=== PATIENT | male | born 1980 | race Caucasian/White ===

== ENCOUNTER 2020-01-09 01:58 | Emergency (ER) | payer SELFPAY ==
[~2020-01-09] VITALS: Ht 167.6 cm; Wt 80.0 kg
--- NOTE | 2020-01-09 02:03 | NUR ---
Patient BIB [facility] c/o meth ingestion. Patient states he swallowed half of a bag of meth (EMS states approx 1/2 gram. Per EMS, patient was going to be arrested but instead was sent to the hospital to be evaluated. Patient c/o nausea. Denies pain. Paient is in NAD. Respirations even and unlabored.
[2020-01-09 04:29] VITALS: BP 146/91
--- NOTE | 2020-01-09 04:48 | NUR ---
Discharge instructions given. All questions and concerns addressed. Patient ambulatory with a steady gait. Belongings with patient.
== END 2020-01-09 04:50 | disposition home or self-care (01) ==
LOC: ED 03:34
DX: F15.129 Other stimulant abuse with intoxication, unspecified (principal); Z72.9 Problem related to lifestyle, unspecified; R00.0 Tachycardia, unspecified; R41.82 Altered mental status, unspecified
CPT/HCPCS: 93005; 99283

== ENCOUNTER 2020-01-12 08:35 | Emergency (ER) | payer OTHER, SELFPAY ==
[~2020-01-12] VITALS: Ht 162.6 cm; Wt 76.0 kg
--- NOTE | 2020-01-12 09:55 | NUR ---
SHIPPING SUPPORT CLERK: PT TO ROOM VIA WHEELCHAIR FROM LOBBY AT THIS TIME.
--- NOTE | 2020-01-12 10:11 | NUR ---
ALEM PAC AT BEDSIDE. PT HAS SWELLING TO RIGHT FOOT GREATER THAN LEFT WITH REDNESS TO CERTAIN TOES ON VOTH FEET. THE GREAT TOE AND JOINT BELOW IS SIGNIFICANTLY SWOLLEN AND SKIN IS RED. PT DENIES HX OF GOUT. PT IS HOMELESS AND WALKS QUITE A BIT IN ILL FITTING SHOES. PT ALSO C/O SORE THROAT FOR LAST COUPLE OF DAYS.
[2020-01-12 11:02] LABS: RAPID INFLUENZA A Negative (Negative); RAPID INFLUENZA B Negative (Negative)
--- NOTE | 2020-01-12 11:14 | NUR ---
CHART UP FOR MD RECHECK. PT AWARE.
[2020-01-12 11:36] VITALS: BP 125/82
--- NOTE | 2020-01-12 11:39 | NUR ---
TASK RN: Patient/Caregiver given discharge instructions and they have confirmed that they understand the instructions. Patient ambulatory with steady gait.
[2020-04-05] MEDS ORDERED: ABILI (15:52)
[2020-04-05] MEDS ORDERED: GABAPENTIN PO (15:52)
[2020-04-05] MEDS ORDERED: TRAZADONE PO (15:52)
[2020-04-09] MEDS ORDERED: AMOX1TAB64 PO (14:34)
[2020-04-09] MEDS ORDERED: ARIP10TA33 PO (14:41)
== END 2020-01-12 11:40 | disposition home or self-care (01) ==
LOC: ED 09:59
DX: B34.9 Viral infection, unspecified (principal); Z20.828 Contact with and (suspected) exposure to other viral communicable diseases; L03.116 Cellulitis of left lower limb; L03.115 Cellulitis of right lower limb; R50.9 Fever, unspecified; J02.9 Acute pharyngitis, unspecified; M79.10 Myalgia, unspecified site; R05 Cough
CPT/HCPCS: 71045; 87081; 87400; 87880; 99284; U0001

== ENCOUNTER 2020-01-19 11:21 | Emergency (ER) | payer MEDICAID, OTHER ==
[~2020-01-19] VITALS: Ht 167.6 cm; Wt 77.2 kg
[2020-01-19 11:23] VITALS: BP 133/92
== END 2020-01-19 12:15 | disposition left against medical advice (07) ==
LOC: ED 11:50
DX: M79.671 Pain in right foot (principal); M79.672 Pain in left foot
CPT/HCPCS: 99281

== ENCOUNTER 2020-02-19 08:13 | Emergency (ER) | payer MEDICAID, MEDICARE, OTHER ==
[~2020-02-19] VITALS: Ht 172.7 cm; Wt 54.0 kg
[2020-02-19 08:19] VITALS: BP 120/78
[2020-02-19] MEDS ORDERED: NEOSPORIN OINT. PKT 1 PACKET ONE (08:45)
[2020-02-19] MEDS ORDERED: IBUPROFEN 200 MG TABLET PO ONE (09:00)
[2020-02-19] MEDS ORDERED: IBUPROFEN 600 MG TABLET ONE (09:08)
[2020-02-19] MEDS ORDERED: DICYCLOMINE 20 MG TABLET ONE (09:13)
[2020-02-19] MEDS ORDERED: DICYCLOMINE 20 MG TABLET PO ONE (09:30)
== END 2020-02-19 09:19 | disposition home or self-care (01) ==
LOC: ED 08:24
DX: S90.822A Blister (nonthermal), left foot, initial encounter (principal); S90.821A Blister (nonthermal), right foot, initial encounter; X58.XXXA Exposure to other specified factors, initial encounter; Y93.89 Activity, other specified; Y92.89 Other specified places as the place of occurrence of the external cause; Y99.8 Other external cause status
CPT/HCPCS: 99283

== ENCOUNTER 2020-05-26 05:12 | Emergency (ER) | payer MEDICARE ==
[~2020-05-26] VITALS: Ht 172.7 cm; Wt 65.0 kg
[~2020-05-26 05:12] MED LIST: ABILI; AMOX1TAB64 PO; ARIP10TA33 PO; GABAPENTIN PO; TRAZADONE PO
[2020-05-26] MEDS ORDERED: LORazepam 1MG TABLET PO ONE (05:30)
[2020-05-26] MEDS ORDERED: LORazepam 1MG TABLET ONE (05:39)
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
[2020-05-26 06:00] LABS: AMPHETAMINE SCREEN, URINE Positive (Negative); BARBITURATE SCREEN, URINE Negative (Negative); BENZODIAZEPINE SCREEN, URINE Negative (Negative); CANNABINOID SCREEN, URINE Positive (Negative); COCAINE SCREEN, URINE Negative (Negative); METHADONE SCREEN, URINE Negative (Negative); OPIATE SCREEN, URINE Negative (Negative)
[2020-05-26 06:01] LABS: BASOPHILS # (AUTO) 0.06 x10^3/uL (0-0.1); BASOPHILS % (AUTO) 1 % (0-1); EOSINOPHILS # (AUTO) 0.05 x10^3/uL (0-0.4); EOSINOPHILS % (AUTO) 0 % (1-7); LYMPHOCYTES # (AUTO) 2.28 x10^3/uL (1-3.4); LYMPHOCYTES % (AUTO) 20 % (22-44); MD NO; MEAN CORPUSCULAR HEMOGLOBIN 26.9 pg (27.5-34.5); MEAN CORPUSCULAR HGB CONC 31.7 g/dL (33.2-36.2); MEAN PLATELET VOLUME 7.9 fL (7.4-10.4); MONOCYTES # (AUTO) 0.72 x10^3/uL (0.2-0.8); MONOCYTES % (AUTO) 6 % (2-9); NEUTROPHILS # (AUTO) 8.56 x10^3/uL (1.8-6.8); NEUTROPHILS % (AUTO) 73 % (42-75); PLATELET COUNT 357 x10^3/uL (130-400); RED CELL DISTRIBUTION WIDTH 19.1 % (9.4-14.8)
[2020-05-26 06:08] LABS: ALBUMIN 3.6 g/dL (3.4-5.0); CALCIUM 8.7 mg/dL (8.5-10.1); CHLORIDE 113 mmol/L (98-107)
[2020-05-26 06:11] LABS: ANION GAP 4 mmol/L (5-15); CREATININE 0.76 mg/dL (0.7-1.3); SALICYLATE LEVEL 3.7 mg/dL (2.8-20.0)
--- NOTE | 2020-05-26 07:01 | NUR ---
Handoff report received from LETICIA ST
[2020-05-26] MEDS ORDERED: POTASSIUM CHLORIDE 20 MEQ TAB.ER.PRT PO ONE (07:30)
--- NOTE | 2020-05-26 07:43 | NUR ---
Pt states "Im feeling better". Currently laying in bed, watching TV. Request for food, diet tray ordered, provided with snack. VSWNL and updated. Sitter at bedside. Will monitor.
--- NOTE | 2020-05-26 08:23 | NUR ---
Waiting for psych consult
--- NOTE | 2020-05-26 08:33 | NUR ---
Pt able to ambulate to restroom without issue.
--- NOTE | 2020-05-26 08:56 | NUR ---
Per merrickter, pt throwing food at wall, pouring water on floor.
--- NOTE | 2020-05-26 09:54 | NUR ---
Pt watching TV, comfortable, no complaints.
--- NOTE | 2020-05-26 10:13 | NUR ---
Pt provided with breakfast tray
--- NOTE | 2020-05-26 10:29 | NUR ---
VS updated, pt cooperative and comfortable
--- NOTE | 2020-05-26 12:15 | NUR ---
Pt lying in bed, watching TV, provided with coffee, no complaints or needs at this time. Sitter t bedside.
[2020-05-26] MEDS ORDERED: POTASSIUM CHLORIDE 20 MEQ TAB.ER.PRT ONE ×2 (12:48→12:50)
--- NOTE | 2020-05-26 13:24 | NUR ---
Update provided to Pt's brother, Jonathan.
--- NOTE | 2020-05-26 13:24 | NUR ---
Psych provider at bedside.
[2020-05-26] MEDS ORDERED: DIPHENHYDRAMINE 25 MG CAPSULE PO PRN (14:00)
[2020-05-26] MEDS ORDERED: HALOPERIDOL 5 MG/ML IM PRN (14:00)
[2020-05-26] MEDS ORDERED: DIPHENHYDRAMINE 25 MG CAPSULE ONE (14:05)
--- NOTE | 2020-05-26 14:23 | NUR ---
Pt yelling, screaming at TV. Given Benadryl and Invega. Will monitor.
[2020-05-26] MEDS: PALIPERIDONE 3 MG TAB.ER.24 PO SCH (14:24)
--- NOTE | 2020-05-26 15:42 | NUR ---
BREAK RN NOTE: HOSPITAL BED REQUESTED FROM [employer] [facility]. PT UP TO BATHROOM AND BACK TO BED, GAIT STEADY. PT MILDLY AGITATED, DEMONSTRATING TANGENTIAL SPEECH. PT IN ROOM, ROOM SECURE. SITTER MONITORING FROM [facility]. REPORT GIVEN BACK TO PRIMARY RN WESLEY.
--- NOTE | 2020-05-26 16:12 | NUR ---
Pt given hospital bed for comfort, sreaming at this RN. Slammed door in this RNs face.
[2020-05-26] MEDS ORDERED: HALOPERIDOL 5 MG/ML ONE (17:03)
--- NOTE | 2020-05-26 17:12 | NUR ---
Pt agressive towards this RN. Rosaing, running out of room and into the hallway. Pt cooperative for EKG prior to Haldol admin, IM haldol given. Will monitor.
--- NOTE | 2020-05-26 17:46 | NUR ---
PT DENIED BY [facility] PACKET FAXED TO [facility], [facility] AND [facility]
--- NOTE | 2020-05-26 18:29 | NUR ---
Pt sleeping post Haldol admin. Dinner tray ordered. VS updated.
--- NOTE | 2020-05-26 18:49 | NUR ---
[facility] CALLED AND SAID PT NEEDS TO BE 8 HOURS WITHOUT IM MEDS TO CONSIDER
--- NOTE | 2020-05-26 18:49 | NUR ---
Report given to LETICIA ST
--- NOTE | 2020-05-26 18:56 | NUR ---
Pt bedside report from Jose J gerardo. This rn to assume care of pt. Pt resting comfortably on hospital bed. Awaiting meal tray.
--- NOTE | 2020-05-26 19:19 | NUR ---
Pt given meal tray at this time.
--- NOTE | 2020-05-26 20:32 | NUR ---
Pt resting comfortably. NADN.
[2020-05-26] MEDS ORDERED: TRAZODONE 100MG TABLET PO SCH (21:00)
--- NOTE | 2020-05-26 21:20 | NUR ---
Pt sleeping comfortably. NADN. RR even and unlabored.
--- NOTE | 2020-05-26 22:36 | NUR ---
Pt given milk and crackers upon request.
--- NOTE | 2020-05-27 00:04 | NUR ---
Pt resting comfortably. NADN.
--- NOTE | 2020-05-27 00:28 | NUR ---
Pt sleeping comfortably. NADN. RR even and unlabored.
[2020-05-27] MEDS ORDERED: TRAZODONE 100MG TABLET ONE (01:19)
--- NOTE | 2020-05-27 02:07 | NUR ---
Pt sleeping comfortably. NADN. RR even and unlabored.
--- NOTE | 2020-05-27 02:44 | NUR ---
Pt sleeping comfortably. NADN. RR even and unlabored.
--- NOTE | 2020-05-27 03:53 | NUR ---
Pt report to Martina gerardo.
--- NOTE | 2020-05-27 06:52 | NUR ---
MT: JUAN (THAIS) CALLED AND DECLINED PT DUE TO PT BEING "MEDICALLY COMPLEX".
--- NOTE | 2020-05-27 07:00 | NUR ---
RECIEVED REPORT FROM ARCHANA ST. SITTER AT DOOR.
--- NOTE | 2020-05-27 08:15 | NUR ---
PT RESTING CALMLY IN BED, NO STATED NEEDS. SITTER AT DOOR.
[2020-05-27 09:05] VITALS: BP 96/67
--- NOTE | 2020-05-27 09:08 | NUR ---
PT RECIEVED MEAL TRAY. PT CALM, POLITE AT THIS TIME. PT COOPERATIVE WITH VITALS AND ASSESSMENT QUESTIONS. WILL CONTINUE TO MONITOR. SITTER AT DOOR.
--- NOTE | 2020-05-27 10:08 | NUR ---
pt resting in bed at thsi time. coffee provided at request. football turned on tv for pt at request. no other wants or needs expressed at this time. room is secured and sitter in hallway.
[2020-05-27] MEDS: PALIPERIDONE 3 MG TAB.ER.24 PO SCH (10:25)
--- NOTE | 2020-05-27 11:19 | NUR ---
TP RN NOTE: MUKUL ULLOA ADMIT RN GERONIMO CALLED TO CHECK IN ON STATUS OF REQUEST. RN TO CALL BACK ONCE TRANSFER REQUEST REVIEWED.
--- NOTE | 2020-05-27 11:46 | NUR ---
MEAL TRAY ORDERED
== END 2020-05-27 13:19 | disposition home or self-care (01) ==
LOC: ED 09:26
DX: R45.851 Suicidal ideations (principal); F33.3 Major depressive disorder, recurrent, severe with psychotic symptoms; E87.6 Hypokalemia; F15.159 Other stimulant abuse with stimulant-induced psychotic disorder, unspecified; F12.10 Cannabis abuse, uncomplicated; R00.0 Tachycardia, unspecified; I10 Essential (primary) hypertension; F17.200 Nicotine dependence, unspecified, uncomplicated
CPT/HCPCS: 36415; 80048; 80307; 82040; 85025; 93005; 96372; 99284; J1630; Q0163

== ENCOUNTER 2020-09-13 04:03 | Emergency (ER) | payer MEDICARE ==
[~2020-09-13] VITALS: Ht 167.6 cm; Wt 64.9 kg
--- NOTE | 2020-09-13 04:32 | NUR ---
PT STATES HAVING GROIN PAIN, VISIBLE BULGE NOTED IN INGUNAL AREA. PT HAVING HARD TIME ANSWERING QUESTIONS, WHEN ASKED A QUESTION ABOUT WHEN PAIN ORIGINATED PT IS UNABLE TO RECALL AND KEEPS STATING "NO, YEA", BUT PT STATES HE HAS KNOWN ABOUT HAVING A HERNIA. PT PLACED ON MONITORS, IN GOWN AND AWAITING ERP EVAL
[2020-09-13] MEDS ORDERED: LORazepam 2 MG/ML, 1ML ONE (04:53)
[2020-09-13] MEDS ORDERED: SODIUM CHLORIDE 0.9% 1,000ML IVBOLUS ONE ×2 (05:00→06:30)
[2020-09-13] MEDS ORDERED: LORazepam 2 MG/ML, 1ML IVPush ONE (05:00)
[2020-09-13 05:16] LABS: BASOPHILS % (AUTO) 0 % (0-1); EOSINOPHILS % (AUTO) 0 % (1-7); LYMPHOCYTES % (AUTO) 6 % (22-44); MEAN CORPUSCULAR HEMOGLOBIN 30.5 pg (27.5-34.5); MEAN CORPUSCULAR HGB CONC 35.6 g/dL (33.2-36.2); MEAN PLATELET VOLUME 7.2 fL (7.4-10.4); MONOCYTES % (AUTO) 11 % (2-9); NEUTROPHILS % (AUTO) 83 % (42-75); PLATELET COUNT 310 x10^3/uL (130-400); RED BLOOD COUNT 3.93 x10^6/uL (4.38-5.82); RED CELL DISTRIBUTION WIDTH 14.4 % (9.4-14.8)
[2020-09-13 05:21] LABS: ALBUMIN 3.9 g/dL (3.4-5.0); ANION GAP 9 mmol/L (5-15); CHLORIDE 102 mmol/L (98-107)
[2020-09-13 05:24] LABS: ALANINE AMINOTRANSFERASE 72 U/L (12-78); ALKALINE PHOSPHATASE 116 U/L (45-117); BILIRUBIN,TOTAL 0.3 mg/dL (0.2-1.0); TOTAL PROTEIN 6.9 g/dL (6.4-8.2)
[2020-09-13 05:26] LABS: MICROSCOPIC NOT IND
[2020-09-13 05:30] LABS: MD NO
--- NOTE | 2020-09-13 05:36 | NUR ---
RADIOLOGY CAME TO TAKE PATIENT, PT STATED HE NEEDS TO GO TO THE BATHROOM. THIS RN WENT IN AND PATIENT STATED HE CAN HOLD IT AND WANTS TO GO TO XRAY NOW. THIS RN TOLD PATIENT THAT ITS OK TO GO AND PATIENT REFUSED STATING "I WENT EARLIER". WILL CALL RADIOLOGY BACK TO GET PATIENT.
[2020-09-13 05:43] LABS: AMPHETAMINE SCREEN, URINE Negative (Negative); BARBITURATE SCREEN, URINE Negative (Negative); BENZODIAZEPINE SCREEN, URINE Negative (Negative); CANNABINOID SCREEN, URINE Positive (Negative); COCAINE SCREEN, URINE Negative (Negative); METHADONE SCREEN, URINE Negative (Negative); OPIATE SCREEN, URINE Negative (Negative)
--- NOTE | 2020-09-13 05:50 | NUR ---
PT TO XRAY
[2020-09-13] MEDS ORDERED: ONDANSETRON 2MG/ML, 2ML IVPush ONE (06:30)
[2020-09-13] MEDS ORDERED: MORPHINE SULFATE 4 MG/ML, 1ML IVPush PRN (06:30)
[2020-09-13 06:54] VITALS: BP 97/57
--- NOTE | 2020-09-13 06:54 | NUR ---
pt requesting to leave. [facility]. updated pt on plan of care and let him know he can have some food after the results are back. pt verbalized understanding and that he was willing to wait.
--- NOTE | 2020-09-13 07:33 | NUR ---
pt bernabe green. IV was dc'd by pt. provider updated
== END 2020-09-13 07:37 | disposition left against medical advice (07) ==
LOC: ED 07:19
DX: K42.9 Umbilical hernia without obstruction or gangrene (principal); R10.32 Left lower quadrant pain; R00.0 Tachycardia, unspecified; E87.6 Hypokalemia; I10 Essential (primary) hypertension; F17.210 Nicotine dependence, cigarettes, uncomplicated
CPT/HCPCS: 36415; 74022; 80053; 80307; 80320; 81003; 83690; 85025; 93005; 96361; 96374; 96375; 99285; J2060; J2405; J7030; G0480